=== PATIENT | female | born 1945 | race Caucasian/White ===

== ENCOUNTER 2017-07-02 21:44 | Emergency (ER) | payer OTHER ==
[2017-07-02] MEDS ORDERED: Ondansetron ODT TAB* 4 MG PO ONE (22:03)
[2017-07-02] MEDS ORDERED: NS 0.9% 1000 ML* 1,000 ML IV SCH (22:15)
--- NOTE | 2017-07-02 22:16 | UC ---
Dizzy HPI HPI Summary: N/V AND DIZZINESS STARTED TODAY. WORSE WHEN SITTING UP AND WITH CHANGE IN HEAD POSITION. NO WEAKNESS. MILD RIGHT EAR PRESSURE. NO FEVER. - History Of Current Complaint Stated Complaint: DIZZINESS Time Seen by Provider: 07/02/17 21:54 Hx Obtained From: Patient, Family/Premium Auditor - DAUGHTER AND SON-IN-LAW Onset/Duration: Gradual Onset, Lasting Hours, Still Present Timing: Constant Severity Initially: Moderate Severity Currently: Severe Pain Intensity: 0 Pain Scale Used: 0-10 Numeric Character: Head Spinning, Room Spinning, Dizzy Aggravating Factor(s): Position Change, Supine To Erect, Change In Head Position Alleviating Factor(s): Nothing Associated Signs And Symptoms: Positive: Nausea, Vomiting - Allergies/Home Medications Allergies/Adverse Reactions: Allergies Allergy/AdvReac Type Severity Reaction Status Date / Time No Known Allergies Allergy Verified 07/02/17 22:04 Home Medications: Home Medications "Water Pill"* 07/02/17 [History] Bp Med* 07/02/17 [History] Other Med - ?Name* 07/02/17 [History] PMH/Surg Hx/FS Hx/Imm Hx Cardiovascular History: Hypertension - Surgical History Surgical History: Yes Surgery Procedure, Year, and Place: HYSTERECTOMY, BACK SURGERY - Family History Known Family History: Positive: Hypertension - Social History Alcohol Use: None Substance Use Type: None Smoking Status (MU): Never Smoked Tobacco Review of Systems Constitutional: Other - DIZZY ENT: Negative Respiratory: Negative Cardiovascular: Negative Gastrointestinal: Nausea All Other Systems Reviewed And Are Negative: Yes Physical Exam Triage Information Reviewed: Yes Appearance: Well-Nourished, Ill-Appearing - MODERATE, Pain Distress - MODERATE. EYES CLOSED, GRIMACING IN DISCOMFORT Vital Signs: Initial Vital Signs Temp 96.7 F 07/02/17 21:50 Pulse 84 07/02/17 21:50 Resp 20 07/02/17 21:50 BP 191/78 07/02/17 21:50 Vital Signs Reviewed: Yes Eyes: Positive: Conjunctiva Clear ENT: Positive: Hearing grossly normal, TMs normal Neck: Positive: Supple Respiratory Exam: Normal Cardiovascular Exam: Normal Abdomen Description: Positive: Soft Musculoskeletal: Positive: No Edema Neurological: Positive: Alert Psychological: Positive: Normal Response To Family, Age Appropriate Behavior Skin: Negative: rashes Dizzy Course/Dx - Differential Dx/Diagnosis Provider Diagnoses: DIZZY, NAUSEA/VOMITING - Physician Notifications Discussed Patient Care With: Nadine Lawson - [place] [facility] [place] Time Discussed With Above Provider: 22:07 Instructed by Provider To: MD Will See In ED Discharge - Discharge Plan Condition: Stable Disposition: TRANS HIGHER LVL OF CARE FAC Referrals: No Primary Care Phys,NOPCP [Primary Care Provider] -
[2017-07-02 22:23] VITALS: BP 178/92
== END 2017-07-02 22:27 | disposition short-term general hospital (02) ==
LOC: UCEAST 21:44
DX: R42 Dizziness and giddiness (principal); R11.2 Nausea with vomiting, unspecified; I10 Essential (primary) hypertension
CPT/HCPCS: 99203; A9270-GY; G0463

== ENCOUNTER 2017-07-02 22:49 | Observation (INO) | payer MEDICARE, OTHER ==
[2017-07-02] MEDS ORDERED: Ondansetron INJ* 2 MG/ML VIAL IV ONE (22:54)
[2017-07-02] MEDS ORDERED: NS 0.9% 1000 ML* 1,000 ML IV ONE (22:54)
[2017-07-02 23:07] LABS: Hematocrit 41 % (35-47); Hemoglobin 13.7 g/dl (12.0-16.0); Mean Corpuscular HGB Conc 34 g/dl (31-36); Mean Corpuscular Hemoglobin 31 pg (27-31); Mean Corpuscular Volume 91 fL (80-97); Mean Platelet Volume 8 um3 (7.4-10.4); Red Blood Count 4.49 10^6/ul (4.0-5.4); Red Cell Distribution Width 13 % (10.5-15); White Blood Count 7.6 10^3/ul (3.5-10.8)
[2017-07-02 23:20] LABS: BUN/Creatinine Ratio 16.5 (8-20); C Reactive Protein 2.51 mg/L (< 5.00); Calcium 9.3 mg/dL (8.6-10.3); EGFR African American 91.5 (>60); EGFR Non-African American 71.1 (>60); Globulin 3.2 g/dL (2-4); Magnesium 1.7 mg/dL (1.9-2.7); Potassium 3.4 mmol/L (3.5-5.0); Total Bilirubin 0.7 mg/dL (0.2-1.0); Total Protein 7.2 g/dL (6.4-8.9)
[2017-07-02 23:21] LABS: Troponin I 0.03 ng/mL (<0.04)
[2017-07-02 23:22] LABS: Urine Bilirubin Negative (Negative); Urine Glucose Negative (Negative); Urine Nitrite Negative (Negative)
[2017-07-02 23:35] LABS: TSH (Thyroid Stimulating Horm) 0.57 mcIU/mL (0.34-5.60)
[2017-07-03] MEDS ORDERED: Iohexol 300* (CONTRAST) 10 ML SDV IV ONE (00:10)
[2017-07-03] MEDS ORDERED: Magnesium Sulfate 1 GM IV* 1 GM/100 ML BAG IV ONE (01:31)
[2017-07-03] MEDS ORDERED: Meclizine TAB* 12.5 MG PO ONE (01:32)
[2017-07-03] MEDS ORDERED: NS 0.9% 1000 ML* 1,000 ML BOLUS ONE (01:45)
[2017-07-03] MEDS ORDERED: amLODIPine TAB* 5 MG PO ONE (02:02)
[2017-07-03] MEDS ORDERED: Potassium Chlor TAB* 20 MEQ TAB.ER PO ONE (02:44)
[2017-07-03] MEDS ORDERED: PROCHLORPERAZINE INJ 5 MG/ML 2 ML VIAL IV PRN (03:19)
[2017-07-03] MEDS ORDERED: Ondansetron INJ* 2 MG/ML VIAL IV PRN (03:30)
[2017-07-03] MEDS ORDERED: Acetaminophen TAB* 325 MG PO PRN (03:30)
[2017-07-03] MEDS ORDERED: Senna TAB PO PRN (03:30)
[2017-07-03] MEDS ORDERED: Al Hydrox/Mg Hydrox/Simet LIQ* 30 ML UDC PO PRN (03:30)
[2017-07-03] MEDS ORDERED: Docusate CAP* 100 MG PO PRN (03:30)
--- NOTE | 2017-07-03 04:48 | ED ---
I, Ashok,Santa, scribed for Becca Sousa MD on 07/03/17 at 0000 . Dizziness - HPI Summary HPI Summary: This 72 y/o female presents to ED from Urgent Care via ambulance for spinning dizziness and nausea/vomiting since this morning. Negative CP, SOB, or ear ache. Pt was given sublingual zofran ASSEMBLER TRIM. No NTG given. Change in position makes dizziness worse. Pt states that she spent most of today in bed. PMHx includes HTN and vertigo associated with inner ear infection. Normal ear was noted at Urgent Care. Pt is noted afebrile at initial evaluation upon ED arrival. Pt is visiting her daughter, is from [place]. - History Of Current Complaint Chief Complaint: EDDizziness Stated Complaint: NAUSEA Time Seen by Provider: 07/02/17 22:54 Hx Obtained From: Patient, Family/Respiratory Care Technician - daughter is present in ED, Medical Records Last Known Well Date: this am Onset/Duration: Gradually Timing: Constant Severity Initially: Moderate Severity Currently: Severe Character: Room Spinning, Dizzy Aggravating Factor(s): Nothing Alleviating Factor(s): Nothing Associated Signs And Symptoms: Positive: Nausea, Vomiting. Negative: Chest Pain , SOB Related History: Similar Episode/Dx as - labyrinthitis - Risk Factors Cardiac Risk Factors: Hypertension CVA Risk Factor: Hypertension - Allergies/Home Medications Allergies/Adverse Reactions: Allergies Allergy/AdvReac Type Severity Reaction Status Date / Time No Known Allergies Allergy Verified 07/02/17 22:04 PMH/Surg Hx/FS Hx/Imm Hx Previously Healthy: No Cardiovascular History: Reports: Hx Hypertension Neurological History: Reports: Other Neuro Impairments/Disorders - Vertigo associated with ear infection - Surgical History Surgery Procedure, Year, and Place: HYSTERECTOMY, BACK SURGERY - Immunization History Date of Tetanus Vaccine: utd Date of Influenza Vaccine: utd Infectious Disease History: No Infectious Disease History: Denies: Traveled Outside the [place] in Last 30 Days - Family History Known Family History: Positive: Hypertension - Social History Occupation: Retired Lives: Alone Alcohol Use: None Hx Substance Use: No Substance Use Type: Reports: None Hx Tobacco Use: No Smoking Status (MU): Never Smoked Tobacco Review of Systems Negative: Fever Cardiovascular: Negative Respiratory: Negative Positive: Vomiting, Nausea. Negative: Abdominal Pain, Diarrhea Skin: Negative Neurological: Other - Positive dizziness Negative: Headache Psychological: Normal All Other Systems Reviewed And Are Negative: Yes Physical Exam Triage Information Reviewed: Yes Vital Signs On Initial Exam: Initial Vitals Temp Pulse Resp BP Pulse Ox 97.4 F 68 18 178/92 98 07/02/17 22:54 07/02/17 22:54 07/02/17 22:54 07/02/17 22:54 07/02/17 22:54 Vital Signs Reviewed: Yes Appearance: Positive: No Pain Distress, Well-Nourished, Ill-Appearing - vomiting upon arrival to ED by ambulance from . Keeps eyes closed when interviewed, due to dizziness Skin: Positive: Warm, Skin Color Reflects Adequate Perfusion, Dry Head/Face: Positive: Normal Head/Face Inspection Eyes: Positive: EOMI, LETI, Conjunctiva Clear ENT: Positive: Normal ENT inspection, TMs normal - bilat. Negative: Muffled/ hoarse voice Neck: Positive: Supple, Nontender, No Lymphadenopathy Respiratory/Lung Sounds: Positive: Clear to Auscultation, Breath Sounds Present Cardiovascular: Positive: RRR, Pulses are Symmetrical in both Upper and Lower Extremities Abdomen Description: Positive: Nontender, Soft, Other: - Actively vomiting upon ED arrival Musculoskeletal: Positive: Strength/ROM Intact Neurological: Positive: Sensory/Motor Intact, Alert, Oriented to Person Place, Time, Facial Symmetry, Speech Normal. Negative: Focal Deficit @ Psychiatric: Positive: Affect/Mood Appropriate AVPU Assessment: Alert - Chayo Coma Scale Coma Scale Total: 15 Diagnostics - Vital Signs Vital Signs Temp Pulse Resp BP Pulse Ox 07/02/17 23:03 97.4 F 68 16 187/75 97 07/02/17 22:54 97.4 F 68 18 178/92 98 - Laboratory Lab Results: Lab Results 07/02/17 07/02/17 07/02/17 Range/Units 22:15 22:15 22:15 WBC 7.6 (3.5-10.8) 10^3/ul RBC 4.49 (4.0-5.4) 10^6/ul Hgb 13.7 (12.0-16.0) g/dl Hct 41 (35-47) % MCV 91 (80-97) fL MCH 31 (27-31) pg MCHC 34 (31-36) g/dl RDW 13 (10.5-15) % Plt Count 242 (150-450) 10^3/ul MPV 8 (7.4-10.4) um3 Neut % (Auto) 81.7 (38-83) % Lymph % (Auto) 13.0 L (25-47) % [place] % (Auto) 4.3 (1-9) % Eos % (Auto) 0.6 (0-6) % Baso % (Auto) 0.4 (0-2) % Absolute Neuts (auto) 6.2 (1.5-7.7) 10^3/ul Absolute Lymphs (auto) 1.0 (1.0-4.8) 10^3/ul Absolute Monos (auto) 0.3 (0-0.8) 10^3/ul Absolute Eos (auto) 0 (0-0.6) 10^3/ul Absolute Basos (auto) 0 (0-0.2) 10^3/ul Absolute Nucleated RBC 0 10^3/ul Nucleated RBC % 0 INR (Anticoag Therapy) (0.89-1.11) APTT (26.0-36.3) seconds Sodium 137 (133-145) mmol/L Potassium 3.4 L (3.5-5.0) mmol/L Chloride 103 (101-111) mmol/L Carbon Dioxide 23 (22-32) mmol/L Anion Gap 11 (2-11) mmol/L BUN 13 (6-24) mg/dL Creatinine 0.79 (0.51-0.95) mg/dL Est GFR ( Amer) 91.5 (>60) Est GFR (Non-Af Amer) 71.1 (>60) BUN/Creatinine Ratio 16.5 (8-20) Glucose 153 H (70-100) mg/dL Lactic Acid 1.7 (0.5-2.0) mmol/L Calcium 9.3 (8.6-10.3) mg/dL Magnesium 1.7 L (1.9-2.7) mg/dL Total Bilirubin 0.70 (0.2-1.0) mg/dL AST 22 (13-39) U/L ALT 8 (7-52) U/L Alkaline Phosphatase 110 H (34-104) U/L Total Creatine Kinase 57 (10-223) U/L Troponin I 0.03 (<0.04) ng/mL C-Reactive Protein 2.51 (< 5.00) mg/L Total Protein 7.2 (6.4-8.9) g/dL Albumin 4.0 (3.2-5.2) g/dL Globulin 3.2 (2-4) g/dL Albumin/Globulin Ratio 1.3 (1-3) Amylase 33 (29-103) U/L Lipase 11 (11.0-82.0) U/L TSH 0.57 (0.34-5.60) mcIU/mL Urine Color Urine Appearance Urine pH (5-9) Ur Specific [place] (1.010-1.030) Urine Protein (Negative) Urine Ketones (Negative) Urine Blood (Negative) Urine Nitrate (Negative) Urine Bilirubin (Negative) Urine Urobilinogen (Negative) Ur Leukocyte Esterase (Negative) Urine Glucose (Negative) 07/02/17 07/02/17 Range/Units 22:15 23:13 WBC (3.5-10.8) 10^3/ul RBC (4.0-5.4) 10^6/ul Hgb (12.0-16.0) g/dl Hct (35-47) % MCV (80-97) fL MCH (27-31) pg MCHC (31-36) g/dl RDW (10.5-15) % Plt Count (150-450) 10^3/ul MPV (7.4-10.4) um3 Neut % (Auto) (38-83) % Lymph % (Auto) (25-47) % [place] % (Auto) (1-9) % Eos % (Auto) (0-6) % Baso % (Auto) (0-2) % Absolute Neuts (auto) (1.5-7.7) 10^3/ul Absolute Lymphs (auto) (1.0-4.8) 10^3/ul Absolute Monos (auto) (0-0.8) 10^3/ul Absolute Eos (auto) (0-0.6) 10^3/ul Absolute Basos (auto) (0-0.2) 10^3/ul Absolute Nucleated RBC 10^3/ul Nucleated RBC % INR (Anticoag Therapy) 0.94 (0.89-1.11) APTT 28.3 (26.0-36.3) seconds Sodium (133-145) mmol/L Potassium (3.5-5.0) mmol/L Chloride (101-111) mmol/L Carbon Dioxide (22-32) mmol/L Anion Gap (2-11) mmol/L BUN (6-24) mg/dL Creatinine (0.51-0.95) mg/dL Est GFR ( Amer) (>60) Est GFR (Non-Af Amer) (>60) BUN/Creatinine Ratio (8-20) Glucose (70-100) mg/dL Lactic Acid (0.5-2.0) mmol/L Calcium (8.6-10.3) mg/dL Magnesium (1.9-2.7) mg/dL Total Bilirubin (0.2-1.0) mg/dL AST (13-39) U/L ALT (7-52) U/L Alkaline Phosphatase (34-104) U/L Total Creatine Kinase (10-223) U/L Troponin I (<0.04) ng/mL C-Reactive Protein (< 5.00) mg/L Total Protein (6.4-8.9) g/dL Albumin (3.2-5.2) g/dL Globulin (2-4) g/dL Albumin/Globulin Ratio (1-3) Amylase (29-103) U/L Lipase (11.0-82.0) U/L TSH (0.34-5.60) mcIU/mL Urine Color Straw Urine Appearance Clear Urine pH 7.0 (5-9) Ur Specific [place] 1.009 L (1.010-1.030) Urine Protein Negative (Negative) Urine Ketones 1+ H (Negative) Urine Blood Negative (Negative) Urine Nitrate Negative (Negative) Urine Bilirubin Negative (Negative) Urine Urobilinogen Negative (Negative) Ur Leukocyte Esterase Negative (Negative) Urine Glucose Negative (Negative) Result Diagrams: 07/02/17 22:15 07/02/17 22:15 Lab Statement: Any lab studies that have been ordered have been reviewed, and results considered in the medical decision making process. - Radiology CXR Radiology Interpretation Completed By: ED Physician - See EMR - CT Ab/P CT Interpretation: Positive (See Comments) - Thee is a 1.7 cm x 1.2 cm cyst or cystic lesion in the junction of the pancreatic tail and head. This will need evaluation/followup to exclude pancreatic cystic neoplasm. No other acute intra- abd abnormalities are noted. CT Interpretation Completed By: Radiologist - EKG 0011 Cardiac Rate: NL - 61 bpm EKG Rhythm: Sinus Rhythm EKG Interpretation: Normal EKG with QTc 458, normal axis and normal PERRY conduction Re-Evaluation - Re-Evaluation First Eval Re-Evaluation Time: 01:20 Change: Improved Comment: MD in room to re-evaluate pt. N/V resolved. Dizziness still persists. Pt was able to tolerate matthew silviano. Second Eval Re-Evaluation Time: 02:45 Change: Unchanged Comment: MD in room to update pt on lab results and CT Ab/P imaging studies. Dizziness still persists. She states that she feels unsafe to be discharged, and is currently requesting admission. Dizzy Course/Dx - Course Assessment/Plan: This 72 y/o female presents to ED from Urgent care via ambulance for room spinning dizziness and n/v. Pt was seen actively vomiting and unable to lift her head off pillow at time of initial eval in ED. N/V is alleviated after 4 mg Zofran ASSEMBLER TRIM and another 4 mg Zofran and Antivert in ED, but dizziness still persist. CXR and CT Ab/P were taken, and CT Ab/P indicates cystic pancreatic tail. Findings were shared with pt. CT brain: no hemorrhage, no mass, chronic change. Plan of care has been discussed with Dr. Saleem, who is agreeable to pt's admission. - Diagnoses Differential Diagnosis/HQI/PQRI: CVA, Labyrinthitis, Metabolic Abnormality Provider Diagnoses: Acute onset of vertigo with vomiting and inability to stand, Hypertension, poor control - Provider Notifications Discussed Care Of Patient With: Yeimy Saleem Time Discussed With Above Provider: 03:02 Instructed by Provider To: Admit As Inpatient Discharge - Discharge Plan Condition: Stable Disposition: ADMITTED TO [facility] documentation as recorded by the Ashok velazquez Soohyun accurately reflects the service I personally performed and the decisions made by , Becca Sousa MD.
[2017-07-03] MEDS: NS 0.9% 1000 ML* 1,000 ML IV SCH ×2 (04:54→15:20)
[2017-07-03] MEDS: Heparin VIAL(*) 5000 UNITS/ML VIAL (FIVE THOUSAND) SUBCUT SCH ×2 (05:02→15:21)
[2017-07-03 06:02] LABS: HDL Cholesterol 81.8 mg/dL
--- NOTE | 2017-07-03 06:48 | HP ---
CC: Raul Lindquist MD * HISTORY AND PHYSICAL: DATE OF ADMISSION: 07/03/17 TIME OF EVALUATION: 0300. PRIMARY CARE PHYSICIAN: Raul Lindquist MD, [place], [place], [facility]. CHIEF COMPLAINT: Vertigo and intractable nausea, vomiting. HISTORY OF PRESENT ILLNESS: This is a 72-year-old female with a past medical history of hypertension, hyperlipidemia, who presented to the emergency room this evening after having acute onset of dizziness, nausea, vomiting that started around 9 p.m. yesterday. She states several years ago, she was diagnosed with labyrinthitis and had vertigo at that time, but is not nearly as bad as it is on this encounter. Her vertigo is still present and she still remains nauseous. She is also lightheaded with the headache. No shortness of breath. No chest pain. No weakness or numbness. No abdominal pain, no diarrhea. No urinary symptoms. No changes in her weight. She states she has had a cold several months ago, but otherwise no fevers or chills or recent viral or other infectious illness. Otherwise, remainder of review of system is negative. In the emergency room, the patient had labs, imaging. She was referred to the hospitalist service for further evaluation. She was given several Zofran and meclizine 25 mg. PAST MEDICAL HISTORY: 1. Hypertension. 2. Hyperlipidemia. 3. History of labyrinthitis. PAST SURGICAL HISTORY: Back surgery, hysterectomy, appendectomy. MEDICATIONS: 1. Simvastatin 40 mg p.o. daily. 2. Hydrochlorothiazide 25 mg p.o. daily. 3. Quinapril 40 mg p.o. b.i.d. 4. Aspirin 325 mg p.o. daily. 5. Vitamin B12 1000 mcg daily. 6. Flaxseed daily. 7. Vitamin D 2000 units daily. ALLERGIES: No known drug allergies. FAMILY HISTORY: Mother from colon cancer. Father from lung cancer. SOCIAL HISTORY: The patient lives with her daughter for the summer in [place]. She is originally from [place] where she spends the remaining of her time. No history of smoking, alcohol or illicit drug use. Her healthcare proxy is her daughter, Ade Venegas. CODE STATUS: Full code. REVIEW OF SYSTEMS: A 14-point review of systems was reviewed. Pertinent positives and negatives are mentioned in the HPI, otherwise negative. PHYSICAL EXAMINATION GENERAL: In no acute distress, resting comfortably, although she is not able to open her eyes during our encounter. VITAL SIGNS: Temp 97.4, pulse rate 58, respiratory rate 18, oxygen saturation 97 % on room air, blood pressure 187/75. HEENT: Head normocephalic. Pupils are equal and reactive. She does have horizontal nystagmus with extraocular muscle movements and having difficulty doing that as well. Oropharynx: Mucous membranes are moist. No erythema or exudate. NECK: Supple. No lymphadenopathy. RESPIRATORY: Clear to auscultation. No wheezes, rales or rhonchi. CARDIAC: Regular rate and rhythm. No murmurs, rubs or gallops. ABDOMEN: Soft, nontender, and nondistended. EXTREMITIES: No clubbing, cyanosis, edema, +2 DPs. NEUROLOGIC: Alert and oriented x3. No focal neurologic deficits. Negative pronator drift. LABORATORY DATA: White count 7.6, hemoglobin 13.7, hematocrit 41, platelets 242. INR 0.94. Sodium 137, potassium 3.4, chloride 103, bicarb 23, BUN 13, creatinine 0.79, glucose 153, magnesium 1.7, troponin 0.03. CRP 2.51. TSH 0.57. Urinalysis is unremarkable. Positive ketones. RADIOGRAPHIC DATA: Abdomen and pelvic CT, there is a 1.7 cm x 1.2 cm cystic lesion in the junction of the pancreatic tail and head. This will need evaluation and followup to exclude pancreatic cyst, neoplasm. Chest x-rays: Per wet read, no significant abnormality. EKG normal sinus rhythm. ASSESSMENT: This is a 72-year-old female with a past medical history of hypertension, hyperlipidemia, presents to the emergency room with acute onset with vertigo and nausea, vomiting. Vertigo, nausea, vomiting. Assessment: With the patient's risk factors, there is certainly a concern for posterior circulation infarction. The patient does also have a history of labyrinthitis, could be that as well. I did not appreciate any fluid or any abnormalities on her ear exam. This could also be a migraine. Plan: We will admit her to telemetry for evaluation. We will get a head CT. Unfortunately, the patient had a CAT scan of the abdomen and pelvis, so there will be contrast on this may be concerning, may be a difficult read to rule out for blood. I would consider Neurology evaluation if persistence persists. We will continue her aspirin full dose. I will allow for permissive hypertension for now in the setting of potentially posterior cerebral infarction. CHRONIC MEDICAL PROBLEMS: 1. Hyperlipidemia. Check a lipid panel in the morning. Hold the simvastatin, we do not have this on formulary. 2. Diet. Place the patient on a heart healthy diet. 3. DVT prophylaxis. The patient scores moderate risk. Placed her on heparin subcu t.i.d. 4. Code status. Full code. PATIENT TIME: Greater than 60 minutes were spent doing the history and physical , more than half the time was spent in direct patient contact. [id number]/CPS #: [id number] GRAY
--- NOTE | 2017-07-03 07:50 | RAD ---
Indication: Vomiting, dizziness. Single frontal view of the chest performed at 2325 hours was reviewed. No prior study is available for comparison. No mediastinal shift is noted. Heart is of normal size and configuration. Lung anne appear clear. IMPRESSION: NO ACTIVE CARDIOPULMONARY DISEASE IS NOTED.
--- NOTE | 2017-07-03 07:59 | RAD ---
CLINICAL HISTORY: Dizziness and vomiting COMPARISON: None TECHNIQUE: Multiple contiguous axial CT scans were obtained of the abdomen and pelvis after the administration of intravenous contrast. Coronal and sagittal multiplanar reformations are submitted for review. Oral contrast was administered. Delayed images were obtained through the abdomen and pelvis. FINDINGS: LUNG BASES: The lung bases are clear. LIVER: The liver is diffusely low in attenuation compared to the spleen. There are several hepatic cysts.. BILE DUCTS: There is no intrahepatic or extrahepatic biliary dilatation. GALLBLADDER: The gallbladder is normal, without pericholecystic inflammatory change. PANCREAS: There is a 1.7 x 1.2 cm cystic lesion of the neck of the pancreas measuring approximately 8 Hounsfield units SPLEEN: Normal in size and appearance. UPPER GI TRACT: Evaluation of the gastrointestinal tract is limited by incomplete gastric distention. The upper GI tract is unremarkable. SMALL BOWEL AND MESENTERY: The small bowel is normal in contour, course, and caliber. There is no obstruction or dilatation. COLON: There are multiple diverticula of the sigmoid colon. There is no pericolonic inflammatory change. ADRENALS: Normal bilaterally. KIDNEYS: The kidneys are normal in shape, size, contour, and axis. There is no hydronephrosis or nephrolithiasis. BLADDER: The bladder is smooth in contour. PELVIC ORGANS: The pelvic organs are not visualized. AORTA: There is calcific atherosclerotic disease of the abdominal aorta and its branches, without aneurysmal dilatation IVC: Unremarkable LYMPH NODES: There is no lymphadenopathy by size criteria. ABDOMINAL WALL: There is no evidence for abdominal wall hernia. BONES AND SOFT TISSUES: Degenerative changes are noted, most pronounced at L5-S1 OTHER: None IMPRESSION: 1.7 CM CYSTIC LESION OF THE PANCREAS. THE DIFFERENTIAL INCLUDES CYSTIC PANCREATIC NEOPLASM. RECOMMEND FURTHER EVALUATION WITH CONTRAST-ENHANCED MRI OF THE ABDOMEN OR MULTIPHASE PANCREATIC PROTOCOL CONTRAST-ENHANCED CT OF THE ABDOMEN
--- NOTE | 2017-07-03 08:03 | RAD ---
HISTORY: Vertigo COMPARISONS: None TECHNIQUE: Multiple contiguous axial CT scans were obtained of the head without intravenous contrast. Please note that this study was performed after contrast enhanced CT of the abdomen and pelvis. This limits the sensitivity for subarachnoid hemorrhage. FINDINGS: HEMORRHAGE/INFARCT: There is no hemorrhage or acute infarct. MASSES/SHIFT: There is no mass or shift. EXTRA-AXIAL SPACES: There are no extra-axial fluid collections. SULCI AND VENTRICLES: The sulci and ventricles are normal in size and position for the patient's stated age. CEREBRUM: There are no focal parenchymal abnormalities. BRAINSTEM: There are no focal parenchymal abnormalities. CEREBELLUM: There are no focal parenchymal abnormalities. VESSELS: The vessels are grossly normal. PARANASAL SINUSES: The paranasal sinuses are clear. ORBITS: The orbits are unremarkable. BONES AND SOFT TISSUE: No bone or soft tissue abnormalities are noted. OTHER: None IMPRESSION: LIMITED STUDY. NO ACUTE INTRACRANIAL PATHOLOGY.
[2017-07-03] MEDS ORDERED: Aspirin TAB* 325 MG PO SCH (09:00)
--- NOTE | 2017-07-03 11:33 | RAD ---
HISTORY: Stroke, vertigo nausea COMPARISONS: Head CT dated July 03, 2017 TECHNIQUE: The following sequences were obtained of the head: Sagittal T1-weighted images, axial T2-weighted images, axial FLAIR images, axial susceptibility weighted images, axial T1-weighted images. Additionally, axial diffusion-weighted images were obtained with calculated apparent diffusion coefficients. FINDINGS: HEMORRHAGE/INFARCT: There is no hemorrhage or acute infarct. MASSES/SHIFT: There is no mass or shift. EXTRA-AXIAL SPACES/MENINGES: There are no extra-axial fluid collections. SULCI AND VENTRICLES: The sulci and ventricles are normal in size and position for the patient's stated age. CEREBRUM: There are multiple scattered small foci of elevated T2/FLAIR signal within the periventricular and subcortical white matter. BRAINSTEM: There are no focal parenchymal abnormalities. CEREBELLUM: There are no focal parenchymal abnormalities. The cerebellar tonsils are normal in size and position. SELLA: The sella is normal. PINEAL: The pineal region is clear. CP ANGLE/TEMPORAL BONES: The labyrinthine structures are grossly normal. VESSELS: Normal flow-voids are noted within the visualized vertebral vasculature. DIFFUSION ABNORMALITIES: There are no diffusion abnormalities. PARANASAL SINUSES/MASTOIDS: There is mucosal thickening of the left maxillary sinus ORBITS: The orbits are unremarkable. BONES AND SOFT TISSUE: No bone or soft tissue abnormalities are noted. OTHER: None IMPRESSION: 1. THERE ARE MULTIPLE FOCI OF ELEVATED T2/FLAIR SIGNAL WITHIN THE PERIVENTRICULAR AND SUBCORTICAL WHITE MATTER. WHILE THESE FINDINGS ARE NONSPECIFIC, THEY CAN BE SEEN IN ASSOCIATION WITH MIGRAINE HEADACHE, THE SEQUELA OF PREVIOUS INFECTION OR INFLAMMATION, AND CHRONIC SMALL VESSEL ISCHEMIA. DEMYELINATING DISEASE IS ALSO WITHIN THE DIFFERENTIAL, BUT IS CONSIDERED LESS LIKELY IN THE ABSENCE OF THE APPROPRIATE CLINICAL PRESENTATION. 2. THERE IS NO RESTRICTED DIFFUSION TO SUGGEST ACUTE INFARCT.
[2017-07-03] MEDS ORDERED: Diazepam TAB(*) 5 MG PO ONE (11:41)
--- NOTE | 2017-07-03 11:57 | PN ---
Subjective Date of Service: 07/03/17 Interval History: Patient seen and examined at bedside. Ms. Venegas is a 72 yo female with a PMH of HTN, HLD, and remote hx of labyrinthitis who reports sudden onset of dizziness with intractable nausea and some emesis. She took medicine at home without effect and came into the hospital. Following treatment overnight, she reports mild improvement with her nausea, though she still endorses vertigo. She denies changes to vision, speech, MUELLER, weakness, hx of migraines. Denies fever/ chills, CP, SOB, abd pain. Telemetry: SR 60s Family History: Unchanged from Admission Social History: Unchanged from Admission Past Medical History: Unchanged from Admission Objective Active Medications: Acetaminophen (Tylenol Tab*) 650 mg PO Q4H PRN PRN Reason: FEVER/PAIN Al Hydrox/Mg Hydrox/Simethicone (Maalox Plus*) 30 ml PO Q6H PRN PRN Reason: INDIGESTION Aspirin (Aspirin Tab*) 325 mg PO DAILY [facility] Last Admin: 07/03/17 08:18 Dose: 325 mg Diazepam (Valium Tab(*)) 2 mg PO Q8H [facility] Docusate Sodium (Colace Cap*) 100 mg PO BID PRN PRN Reason: CONSTIPATION Heparin Sodium (Porcine) (Heparin Vial(*)) 5,000 units SUBCUT Q8HR [facility] Last Admin: 07/03/17 05:02 Dose: 5,000 units Sodium Chloride (Ns 0.9% 1000 Ml*) 1,000 mls @ 125 mls/hr IV PER RATE [facility] Last Admin: 07/03/17 04:54 Dose: 125 mls/hr Ondansetron HCl (Zofran Inj*) 4 mg IV Q4H PRN PRN Reason: NAUSEA/VOMITING Last Admin: 07/03/17 05:02 Dose: 4 mg Prochlorperazine Edisylate (Compazine Inj*) 10 mg IV Q6H PRN PRN Reason: NAUSEA/VOMITING Senna (Senokot Tab*) 1 tab PO BID PRN PRN Reason: CONSTIPATION Vital Signs 07/03/17 07/03/17 07/03/17 03:36 03:45 03:52 Temperature Pulse Rate 60 62 Respiratory 18 18 Rate Blood Pressure 200/84 176/74 (mmHg) O2 Sat by Pulse 95 96 Oximetry 07/03/17 07/03/17 07/03/17 03:56 04:01 07:43 Temperature 97.7 F 97.4 F 98.1 F Pulse Rate 64 60 67 Respiratory 22 16 20 Rate Blood Pressure 182/71 165/68 141/63 (mmHg) O2 Sat by Pulse 95 98 Oximetry 07/03/17 07/03/17 08:00 11:54 Temperature Pulse Rate Respiratory 20 18 Rate Blood Pressure (mmHg) O2 Sat by Pulse Oximetry Oxygen Devices in Use Now: None Appearance: Female patient, lying in bed, NAD Eyes: No Scleral Icterus, PERRLA - EOMI, no nystagmus noted with positional change Ears/Nose/Mouth/Throat: Clear Oropharnyx, Mucous Membranes Moist Neck: NL Appearance and Movements; NL JVP Respiratory: Symmetrical Chest Expansion and Respiratory Effort, Clear to Auscultation Cardiovascular: NL Sounds; No Murmurs; No JVD, RRR Abdominal: NL Sounds; No Tenderness; No Distention Extremities: No Edema, No Clubbing, Cyanosis Neurological: Alert and Oriented x 3, NL Muscle Strength and Tone, - - no pronator drift, pt unable to ambulate due to significant dizziness Lines/Tubes/Other Access: Clean, Dry and Intact Peripheral IV Nutrition: Taking PO's Result Diagrams: 07/02/17 22:15 07/02/17 22:15 Additional Lab and Data: Lab Results 07/02/17 07/02/17 07/02/17 Range/Units 22:15 22:15 22:15 WBC 7.6 (3.5-10.8) 10^3/ul RBC 4.49 (4.0-5.4) 10^6/ul Hgb 13.7 (12.0-16.0) g/dl Hct 41 (35-47) % MCV 91 (80-97) fL MCH 31 (27-31) pg MCHC 34 (31-36) g/dl RDW 13 (10.5-15) % Plt Count 242 (150-450) 10^3/ul MPV 8 (7.4-10.4) um3 Neut % (Auto) 81.7 (38-83) % Lymph % (Auto) 13.0 L (25-47) % [place] % (Auto) 4.3 (1-9) % Eos % (Auto) 0.6 (0-6) % Baso % (Auto) 0.4 (0-2) % Absolute Neuts (auto) 6.2 (1.5-7.7) 10^3/ul Absolute Lymphs (auto) 1.0 (1.0-4.8) 10^3/ul Absolute Monos (auto) 0.3 (0-0.8) 10^3/ul Absolute Eos (auto) 0 (0-0.6) 10^3/ul Absolute Basos (auto) 0 (0-0.2) 10^3/ul Absolute Nucleated RBC 0 10^3/ul Nucleated RBC % 0 INR (Anticoag Therapy) (0.89-1.11) APTT (26.0-36.3) seconds Sodium 137 (133-145) mmol/L Potassium 3.4 L (3.5-5.0) mmol/L Chloride 103 (101-111) mmol/L Carbon Dioxide 23 (22-32) mmol/L Anion Gap 11 (2-11) mmol/L BUN 13 (6-24) mg/dL Creatinine 0.79 (0.51-0.95) mg/dL Est GFR ( Amer) 91.5 (>60) Est GFR (Non-Af Amer) 71.1 (>60) BUN/Creatinine Ratio 16.5 (8-20) Glucose 153 H (70-100) mg/dL Lactic Acid 1.7 (0.5-2.0) mmol/L Calcium 9.3 (8.6-10.3) mg/dL Magnesium 1.7 L (1.9-2.7) mg/dL Total Bilirubin 0.70 (0.2-1.0) mg/dL AST 22 (13-39) U/L ALT 8 (7-52) U/L Alkaline Phosphatase 110 H (34-104) U/L Total Creatine Kinase 57 (10-223) U/L Troponin I 0.03 (<0.04) ng/mL C-Reactive Protein 2.51 (< 5.00) mg/L Total Protein 7.2 (6.4-8.9) g/dL Albumin 4.0 (3.2-5.2) g/dL Globulin 3.2 (2-4) g/dL Albumin/Globulin Ratio 1.3 (1-3) Amylase 33 (29-103) U/L Lipase 11 (11.0-82.0) U/L TSH 0.57 (0.34-5.60) mcIU/mL Urine Color Urine Appearance Urine pH (5-9) Ur Specific [place] (1.010-1.030) Urine Protein (Negative) Urine Ketones (Negative) Urine Blood (Negative) Urine Nitrate (Negative) Urine Bilirubin (Negative) Urine Urobilinogen (Negative) Ur Leukocyte Esterase (Negative) Urine Glucose (Negative) 07/02/17 07/02/17 Range/Units 22:15 23:13 WBC (3.5-10.8) 10^3/ul RBC (4.0-5.4) 10^6/ul Hgb (12.0-16.0) g/dl Hct (35-47) % MCV (80-97) fL MCH (27-31) pg MCHC (31-36) g/dl RDW (10.5-15) % Plt Count (150-450) 10^3/ul MPV (7.4-10.4) um3 Neut % (Auto) (38-83) % Lymph % (Auto) (25-47) % [place] % (Auto) (1-9) % Eos % (Auto) (0-6) % Baso % (Auto) (0-2) % Absolute Neuts (auto) (1.5-7.7) 10^3/ul Absolute Lymphs (auto) (1.0-4.8) 10^3/ul Absolute Monos (auto) (0-0.8) 10^3/ul Absolute Eos (auto) (0-0.6) 10^3/ul Absolute Basos (auto) (0-0.2) 10^3/ul Absolute Nucleated RBC 10^3/ul Nucleated RBC % INR (Anticoag Therapy) 0.94 (0.89-1.11) APTT 28.3 (26.0-36.3) seconds Sodium (133-145) mmol/L Potassium (3.5-5.0) mmol/L Chloride (101-111) mmol/L Carbon Dioxide (22-32) mmol/L Anion Gap (2-11) mmol/L BUN (6-24) mg/dL Creatinine (0.51-0.95) mg/dL Est GFR ( Amer) (>60) Est GFR (Non-Af Amer) (>60) BUN/Creatinine Ratio (8-20) Glucose (70-100) mg/dL Lactic Acid (0.5-2.0) mmol/L Calcium (8.6-10.3) mg/dL Magnesium (1.9-2.7) mg/dL Total Bilirubin (0.2-1.0) mg/dL AST (13-39) U/L ALT (7-52) U/L Alkaline Phosphatase (34-104) U/L Total Creatine Kinase (10-223) U/L Troponin I (<0.04) ng/mL C-Reactive Protein (< 5.00) mg/L Total Protein (6.4-8.9) g/dL Albumin (3.2-5.2) g/dL Globulin (2-4) g/dL Albumin/Globulin Ratio (1-3) Amylase (29-103) U/L Lipase (11.0-82.0) U/L TSH (0.34-5.60) mcIU/mL Urine Color Straw Urine Appearance Clear Urine pH 7.0 (5-9) Ur Specific [place] 1.009 L (1.010-1.030) Urine Protein Negative (Negative) Urine Ketones 1+ H (Negative) Urine Blood Negative (Negative) Urine Nitrate Negative (Negative) Urine Bilirubin Negative (Negative) Urine Urobilinogen Negative (Negative) Ur Leukocyte Esterase Negative (Negative) Urine Glucose Negative (Negative) Assess/Plan/Problems-Billing Assessment: Ms. Venegas is a 72 yo female with a PMH of HTN and HLD who presented to the ED on with concern for dizziness with n/v. - Patient Problems (1) Dizziness Code(s): R42 - DIZZINESS AND GIDDINESS Comment: Patient with hx of labyrinthitis 5 years ago N/V have improved Ear exam benign Pt denies MUELLER, tinnitus, vision changes, or hx of migraines MRI brain shows chronic changes, no s/s of restricted diffusion to suggest posterior CVA. Telemetry shows sinus rhythm, no arrhythmias noted. Neurological assessments WNL Plan to give standing diazepam and obtain PT consult (2) Nausea & vomiting Code(s): R11.2 - NAUSEA WITH VOMITING, UNSPECIFIED Comment: Improved, suspect secondary to severe vertigo Continue prn antiemetics (3) HTN (hypertension) Code(s): I10 - ESSENTIAL (PRIMARY) HYPERTENSION Comment: BP improving Hold HCTZ Resume home quinapril (4) HLD (hyperlipidemia) Code(s): E78.5 - HYPERLIPIDEMIA, UNSPECIFIED Comment: Lipid profile with mildly elevated LDLs Continue statin (5) DVT prophylaxis Comment: SQ heparin Status and Disposition: Inpatient admission. D/c to home when medically stable.
[2017-07-03 19:20] VITALS: BP 137/56
[2017-07-03] MEDS ORDERED: Diazepam TAB(*) 2 MG PO SCH (20:00)
--- NOTE | 2017-07-04 10:55 | DS ---
CC: Dr. Lindquist, [place], [place] * DISCHARGE SUMMARY: DATE OF ADMISSION: 07/03/17 DATE OF DISCHARGE: 07/03/17 PROVIDER: Simón Monterroso NP. ATTENDING PHYSICIAN: Dr. Naye Jordan * (dictated by Simón Monterroso NP). PRIMARY CARE PROVIDER: Physician referral pending. The patient also sees Dr. Raul Lindquist, [place], [place]. PRIMARY DISCHARGE DIAGNOSES: 1. Dizziness secondary to vertigo. 2. Nausea and vomiting. SECONDARY DISCHARGE DIAGNOSES: 1. Hypertension. 2. Hyperlipidemia. 3. History of labyrinthitis. HOME MEDICATIONS: 1. Simvastatin 40 mg daily. 2. Hydrochlorothiazide 25 mg daily. 3. Quinapril 40 mg b.i.d. 4. Aspirin 325 mg daily. 5. Vitamin B12, 1000 mcg daily. 6. Flaxseed daily. 7. Vitamin D 2000 units daily. New medications at discharge: 1. Diazepam 2 mg t.i.d. p.r.n. 2. Zofran 4 mg q.6 to 8 hours p.r.n. HOSPITAL COURSE OF STAY: For full details, please refer to the H and P provided by Dr. Saleem on 07/03/17. In summary, Ms. Venegas is a 72-year-old female who presented to the ER with concerns for acute onset of dizziness, nausea, and vomiting that started about 9 p.m. on 07/02/17. She does have a remote history of labyrinthitis and took medication at home that did not help with her symptoms. She presented to the ER with concern for nausea and persistent vertigo. The patient was given Zofran and meclizine and admitted for further observation here in the hospital. The following morning, the patient continued to complain of dizziness with nausea. We did obtain an MRI of the brain with concern for posterior CVA. While chronic changes were seen on the MRI, there were no acute signs of stroke. The MRI report of the brain reads as follows: There are multiple foci of elevated T2 flare signal within the periventricular and subcortical white matter. While these findings are nonspecific, they can be seen in association with migraine headache, sequelae of previous infection or inflammation, and chronic small vessel ischemia. Demyelinating disease is also within differential, but is considered less likely in the absence of the appropriate clinical presentation. There is no to suggest acute infract. Following her MRI, the patient was given diazepam 5 mg with good effect and the patient reportedly was able to get up with physical therapy and ambulate. Per nursing, the patient has been ambulating in the hallway quite a few times this afternoon and doing well. The patient was discharged from physical therapy here in the hospital as she was able to ambulate with only slight instability. The patient was given prescription for cane to obtain as an outpatient to help her with stability. The patient has also been referred to outpatient physical therapy for vertigo but no acute PT needs are identified at this time. The patient is able to tolerate fluid intake and is eating well without nausea. I did offer the patient to stay an additional night for observation and continue medication treatment. However, she did state that she is in town with her daughter and her daughter is pick her up and is not available to pick her up tomorrow. She does have a plan to get home and rest tomorrow and obtain her cane and medications this evening. This plan is reasonable. The patient is able to demonstrate safe ambulation and tolerate p.o. intake. We did discuss the possibility of having a local physician see her as she is here for several months during the year. The patient is in agreement with this and a referral has been sent to our paraplanner to obtain a local physician. The patient was monitored in telemetry with no arrhythmias noted. Neurological checks have been normal. The patient is afebrile. No acute signs of infection. The patient did show mild hypokalemia most likely secondary to her diuretic use. We did replete her potassium appropriately. The patient also received magnesium repletion. Her lipid profile was within normal limits and she is to continue on her simvastatin with instruction to follow up with her PCP. CONCERNS AT DISCHARGE: Ms. Venegas was discharged home on 07/03/17 with a plan to follow up with a local physician. She has been prescribed Zofran and diazepam. I did check her on I-STOP and there are prescriptions seen in [facility] for this patient. DIET: Heart healthy diet. ACTIVITY: As tolerated. CONDITION: Stable. DISPOSITION: To home. TIME SPENT: Time spent on this discharge is approximately 50 minutes. Again this is only a brief summary of the patient's hospital course of stay. For full details, please refer to the full medical record. If you have any further questions or need further assistance, please feel free to contact me at [phone]. SIMÓN MONTERROSO NP [id number]/CPS #: [id number] GRAY
== END 2017-07-03 19:15 | disposition home or self-care (01) ==
LOC: ED 22:49 → MEDTELE 07-03 03:30 → INTOOBSV 07-03 03:30
PROVIDERS: ADMIT Pediatrics; ATTEND Internal Medicine
DX: R42 Dizziness and giddiness (principal); R11.2 Nausea with vomiting, unspecified; I10 Essential (primary) hypertension; E78.5 Hyperlipidemia, unspecified; E87.6 Hypokalemia; K86.2 Cyst of pancreas
CPT/HCPCS: 36415; 70450; 70551; 71010; 74177; 80053; 80061; 81003; 82150; 82550; 83605; 83690; 83735; 84443; 84484; 85025; 85610; 85730; 86140; 93005; 96374; 99203; 99284; A9270-GY; G0378; G0463; J1644; J2405; J3475; Q9967